=== PATIENT | male | born 1985 | race Caucasian/White ===

== ENCOUNTER 2016-08-22 22:12 | Emergency (ER) | payer SELFPAY ==
[~2016-08-22] VITALS: Ht 188 cm; Wt 125.0 kg
[~2016-08-22 22:12] MED LIST: ACET-1256 PO; CITA20TA9 PO; HYDR-5688 PO; LORA-741 PO
[2016-08-22 22:24] VITALS: TEMP 36.9; Ht 188 cm; Wt 125.0 kg
--- NOTE | 2016-08-22 22:54 | EMERGENCY ROOM VISIT NOTE ---
ED Visit Note First contact with patient: 22:40 CHIEF COMPLAINT: knee pain HISTORY OF PRESENT ILLNESS: This 31-year-old male patient presents to the emergency department ambulatory after sustaining an injury to the right knee when he slipped on ice and fell earlier today. The patient had tendon repair to the knee in June. He states that he was just starting to have increased strength in the leg. The patient states that he felt a pulling sensation in the leg. He states he is not able to lift the leg off the bed at this time. He denies any fevers. He denies any redness or warmth. The patient denies any other injuries besides their knee. The patient denies swelling or bruising. There is pain diffusely over the knee. They rate the pain as sharp and 7/10. The patient states they are not able to walk on it. No numbness or tingling. No ankle, foot or hip pain. The patient denies striking his head or having loss of consciousness. He states that he scratched his nose but denies any pain or tenderness to the nose. REVIEW OF SYSTEMS: A 6 system review of systems was completed with positives and pertinent negatives listed in the HPI. ALLERGIES: No known allergies MEDICATIONS: None PMH: Tendon repair to the right knee SOCIAL HISTORY: The patient is a smoker. He lives locally PHYSICAL EXAM: Vital Signs: Reviewed Nurse's notes, vital signs stable. GENERAL : This is a 31-year-old male, no acute distress, but appears in pain, well- developed, well-nourished. MENTAL STATUS: Alert, oriented to person place and time, and cooperative. MUSCULOSKELETAL: The right knee is mildly swollen. There is no ecchymosis. There is minimal joint effusion present. The patient is tender diffusely over the knee. There is no significant joint line tenderness. The patella does not subluxate. Range of motion is decreased. Strength of the quads and hamstrings is 1/5. There is no obvious laxity with very gentle stressing. The foot and toes are warm and well-perfused. Dorsalis pedis pulse 2+. Sensation to pain and light touch is intact. Capillary refill less than 2 seconds. EMERGENCY DEPARTMENT COURSE: I examined the patient. X-rays of the right knee were reviewed by myself and Dr. Pantoja and reveal no obvious fracture or dislocation. The patient declined a knee immobilizer and states he has one that locks at home. He was encouraged to apply the splint and leave it in the locked position until he can follow-up with orthopedics. He states that he also has a walker. He was given 1 Percocet in the emergency department and will be given a small prescription. He should contact orthopedics first thing in the morning to schedule a follow-up appointment. He should return with any worsening symptoms. The patient was discharged home in good condition. Problem List Medical Problems: (1) Attention deficit hyperactivity disorder Status: Chronic Current/Historical Medications Scheduled PRN Hydroxyzine Pamoate (Vistaril), 25 MG PO TID PRN for Anxiety Oxycodone/Acetaminophen 5MG/325MG (Percocet 5MG/325MG), 1-2 TABS PO Q6 PRN for Pain Allergies Coded Allergies: No Known Allergies (Unverified , 03/17/13) Vital Signs Date Time Temp Pulse Resp B/P Pulse Ox O2 Delivery O2 Flow Rate FiO2 08/22/16 23:55 93 18 147/97 93 08/22/16 22:24 36.9 95 18 135/81 97 Room Air Medications Administered Medications (Trade) Dose Ordered Sig/Mirna Route Start Time Stop Time Status Last Admin Dose Admin Oxycodone/ Acetaminophen (Percocet 5-325mg Tab) 1 tab NOW ONCE PO 08/22/16 23:00 08/22/16 23:01 DC 08/22/16 22:54 1 TAB Oxycodone/ Acetaminophen (Percocet 5/ 325MG Home Pack) 1 homepack UD ONCE PO 08/22/16 23:45 08/22/16 23:46 DC 08/22/16 23:43 1 HOMEPACK Departure Information Impression Primary Impression: Knee injury Dispostion Home / Self-Care Condition GOOD Prescriptions Oxycodone/Acetaminophen 5MG/325MG (PERCOCET 5MG/325MG) Tab 1-2 TABS PO Q6 Y for Pain, #24 TAB For Initial Treatment Prov: Brenda Nieto PA-C 08/22/16 Referrals See Segal M.D.([facility]) (PCP) Alejandro Blackwell MD Patient Instructions My [facility] Additional Instructions Apply your brace DEVORA and keep it in the locked position Use your walker with minimal weight on the right leg. Contact orthopedics first in the morning to schedule a follow-up appointment Percocet 1-2 tablet every 4-6 hours as needed for worse pain. No driving or alcohol use with Percocet and do not take with Tylenol. Problem Qualifiers Primary Impression: Knee injury Encounter type: initial encounter Laterality: right Qualified Codes: S89.91XA - Unspecified injury of right lower leg, initial encounter
[2016-08-22] MEDS ORDERED: OXYCODONE/ACETAMINOPHEN 5-325 TAB PO ONE (23:00)
[2016-08-22] MEDS ORDERED: OXYC-57 PO ×2 (23:45→23:57)
[2016-08-22] MEDS ORDERED: PERCOCET HOME PACK PO ONE (23:45)
[2016-08-22 23:55] VITALS: BP 147/97; PULSE 93; O2SAT 93
[2016-08-23] MEDS ORDERED: HYDR25CA PO (00:03)
--- NOTE | 2016-08-23 06:45 | DIAGNOSTIC IMAGING REPORT ---
RIGHT KNEE 3 VIEWS CLINICAL HISTORY: Right knee pain following fall. Recent tendon repair. COMPARISON: Right knee CT June 19, 2016. FINDINGS: Alignment of the right knee is anatomic. There is no acute fracture. Joint spaces are preserved. There is a suspected small joint effusion. IMPRESSION: 1. No acute fracture or dislocation of the right knee. 2. Small right knee joint effusion. Electronically signed by: Doni Pearson M.D. 08/23/2016 6:44 AM Dictated Date/Time: 08/23/2016 6:42 AM
== END 2016-08-23 00:02 | disposition home or self-care (01) ==
LOC: C.EDB 22:14
DX: S89.91XA Unspecified injury of right lower leg, initial encounter (principal); W01.0XXA Fall on same level from slipping, tripping and stumbling without subsequent striking against object, initial encounter; F90.9 Attention-deficit hyperactivity disorder, unspecified type; F17.200 Nicotine dependence, unspecified, uncomplicated

== ENCOUNTER → 2016-08-30 | Outpatient (CLI) | payer OTHER ==
[~2016-08-30] MED LIST changes: -ACET-1256 PO; -CITA20TA9 PO; -HYDR-5688 PO; +HYDR25CA PO; -LORA-741 PO; +OXYC-57 PO
--- NOTE | 2016-08-30 12:22 | DIAGNOSTIC IMAGING REPORT ---
Pain RIGHT LOWER EXT JOINT WITHOUT CLINICAL HISTORY: KNEE PAIN Right TECHNIQUE: MRI multi axial acquisition COMPARISON STUDY: None FINDINGS: Signal characteristics the osseous structures are in general unremarkable. There is a trace amount of chondromalacia patella. There is a small joint effusion. Patellar groove is somewhat shallow. Medial and lateral collateral ligaments are intact. Menisci both medially as well as laterally are unremarkable. There appears to be several very small punctate loose bodies. Medial lateral patellar retinaculum appear intact. Cruciate ligaments are intact. IMPRESSION: 1. Mild chondromalacia patella with several very small punctate loose bodies primarily within the suprapatellar bursal region. 2. All remaining major components of the knee appear unremarkable. Instill note is made of moderate edematous change of the suprapatellar or quadriceps tendon. Electronically signed by: Nicolás Addison M.D. 08/30/2016 12:20 PM Dictated Date/Time: 08/30/2016 12:16 PM
== END | disposition home or self-care (01) ==
LOC: C.MRI 10:49
PROVIDERS: ATTEND Physical Medicine & Rehabilitation Sports Medicine
DX: M25.561 Pain in right knee (principal)